=== PATIENT | male | born 1990 | race Caucasian/White ===

== ENCOUNTER → 2020-10-13 | Outpatient (CLI) | payer BC ==
[~2020-10-13] MED LIST: CATHETER FLUSH 10 ML SYR IV PRN; HOLD METFORMIN - RECEIVED CONTRAST 20 ML VIAL IV SCH; IOHEXOL 350 MG/ML 100 ML (OMNIPAQUE 350) VIAL IV ONE; NS 100 ML (IVPB) BAG IV ONE
--- NOTE | 2020-10-13 09:36 | Diagnostic Imaging Report ---
PROCEDURE: CT abdomen and pelvis with contrast. TECHNIQUE: Multiple contiguous axial images were obtained through the abdomen and pelvis after administration of intravenous contrast. Auto Exposure Controls were utilized during the CT exam to meet ALARA standards for radiation dose reduction. All CT scans use one or more of the following dose optimizing techniques: automated exposure control, MA and/or KvP adjustment based on patient size and exam type or iterative reconstruction. DATE: October 13, 2020. COMPARISON: None. INDICATION: 30-year-old male, left lower quadrant and flank pain. Family history of renal malignancy. FINDINGS: The visualized portions of the lung bases are grossly clear. There is respiratory motion artifact. The heart is not grossly enlarged. There is no identified pericardial effusion. The liver is unremarkable in size and contour. There is no identified liver lesion. The main, right, and left portal veins are patent. The gallbladder is unremarkable. There is no intrahepatic or extra hepatic bile duct dilation. The main pancreatic duct is not abnormally dilated. Unremarkable appearance of the pancreatic parenchyma. The spleen is normal in size. There is a low-attenuation lesion in the spleen on axial image 25 measuring 11 mm in size which is not specific. There is an accessory splenule present on axial image 15. The adrenal glands are unremarkable. There is no identified renal mass. Unremarkable appearance of the renal parenchyma. The urinary collecting systems are not distended. There is no identified renal or ureteral stone. The urinary bladder is unremarkable. The intestinal tract is not distended. The appendix is unremarkable. There is no free intraperitoneal air. There is no drainable fluid collection. There is no free pelvic fluid. There is no identified abnormally enlarged lymph node in the abdomen or pelvis meeting CT size criteria for adenopathy. There is no identified acute bony abnormality. IMPRESSION: CT ABDOMEN AND PELVIS. 1. No identified renal mass or other parenchymal abnormality of the kidneys. 2. Additional CT evaluation of the abdomen and pelvis is unremarkable. Dictated by: Dictated on workstation # [id number]
== END ==
LOC: RAD 08:45
PROVIDERS: ATTEND Nurse Practitioner Family
DX: R10.32 Left lower quadrant pain (principal); Z80.51 Family history of malignant neoplasm of kidney
CPT/HCPCS: 74177

== ENCOUNTER → 2022-09-11 | Outpatient (CLI) | payer BC ==
--- NOTE | 2022-09-11 16:40 | Diagnostic Imaging Report ---
Indication: Neck pain. Findings: Cervical statures are normal. There are degenerative changes greatest at C4-C5. Prevertebral space normal. No fracture. Impression: Degenerative disease aligned anatomically, no acute-appearing abnormality. Dictated by: Dictated on workstation # [id number]
== END ==
LOC: RAD 15:51
PROVIDERS: ATTEND Family Medicine
DX: M47.812 Spondylosis without myelopathy or radiculopathy, cervical region (principal)
CPT/HCPCS: 72040

== ENCOUNTER → 2022-10-03 | Outpatient (CLI) | payer BC | LOC: CARD 15:20 | PROVIDERS: ATTEND Family Medicine | DX: R07.89 Other chest pain (principal) | CPT/HCPCS: 93005 ==

== ENCOUNTER → 2022-11-02 | Outpatient (CLI) | payer BC ==
--- NOTE | 2022-11-02 16:22 | Diagnostic Imaging Report ---
PROCEDURE: MR imaging cervical spine without contrast. TECHNIQUE: Multiplanar, multisequence MR imaging of the cervical spine was performed without contrast. INDICATION: Posterior neck pain x1 year. COMPARISON: Cervical spine radiographs 09/11/2022. FINDINGS: Examination mildly limited by motion. Normal alignment. Vertebral body heights preserved. Normal bone marrow signal. No abnormal signal in the cervical spinal cord allowing for the motion. Visualized paravertebral soft tissues demonstrate no acute findings. C2-C3: No spinal canal or neural foraminal narrowing. C3-C4: Broad-based disc bulging results in moderate right and severe left neural foraminal narrowing. Mild spinal canal narrowing. C4-C5: Uncovertebral joint hypertrophy results in moderate bilateral neural foraminal narrowing. Broad-based disc bulging results in mild spinal canal narrowing. C5-C6: Broad-based disc bulging results in mild spinal canal narrowing. Moderate right and mild left neural foraminal narrowing. C6-C7: No spinal canal or neural foraminal narrowing. C7-T1: No spinal canal or neural foraminal narrowing. IMPRESSION: . 1. Spondylotic changes result in mild spinal canal stenosis at multiple levels with no abnormal signal in the cervical spinal cord. 2. Multilevel mild and moderate neural foraminal narrowing detailed above. 3. No acute osseous findings. Dictated by: Dictated on workstation # [id number]
== END ==
LOC: RAD 14:45
PROVIDERS: ATTEND Nurse Practitioner Family
DX: M48.02 Spinal stenosis, cervical region (principal); M47.812 Spondylosis without myelopathy or radiculopathy, cervical region
CPT/HCPCS: 72141